=== PATIENT | female | born 1965 | race Caucasian/White ===

== ENCOUNTER 2018-01-05 17:02 | Emergency (ER) | payer SELFPAY ==
--- NOTE | 2018-01-05 19:25 | C.PDOC ---
History Of Present Illness 52 year old female presents to the ED c/o right flank pain that started earlier today. Patient now c/o LLQ abdominal pain associated with nausea, 2 episodes vomiting and diarrhea. Patient states her pain is 4/10. Patient denies fever, chills, back pain, dysuria, hematuria, weakness, numbness. Time Seen by Provider: 01/05/18 19:24 Chief Complaint (Nursing): Abdominal Pain History Per: Patient History/Exam Limitations: no limitations Onset/Duration Of Symptoms: Hrs Current Symptoms Are (Timing): Still Present Pain Scale Rating Of: 4 Location Of Pain/Discomfort: LLQ Radiation Of Pain To:: Flank Quality Of Discomfort: "Pain" Associated Symptoms: Nausea, Vomiting, Diarrhea Recent travel outside of the [place]: No Additional History Per: Patient Abnormal Vaginal Bleeding: No Past Medical History Reviewed: Historical Data, Nursing Documentation, Vital Signs Vital Signs: Last Vital Signs Temp 98.5 F 01/05/18 17:47 Pulse 119 H 01/05/18 17:47 Resp 18 01/05/18 17:47 BP 100/70 01/05/18 17:47 Pulse Ox 99 01/05/18 17:47 - Medical History PMH: No Chronic Diseases Surgical History: No Surg Hx Family History: States: Unknown Family Hx - Social History Hx Alcohol Use: No Hx Substance Use: No - Immunization History Hx Tetanus Toxoid Vaccination: No Hx Influenza Vaccination: No Hx Pneumococcal Vaccination: No Review Of Systems Constitutional: Negative for: Fever, Chills Respiratory: Negative for: Cough, Shortness of Breath Gastrointestinal: Positive for: Vomiting, Abdominal Pain, Diarrhea Genitourinary: Negative for: Dysuria, Hematuria Musculoskeletal: Positive for: Back Pain Skin: Negative for: Rash Neurological: Negative for: Weakness, Numbness Physical Exam - Physical Exam Appears: Non-toxic, No Acute Distress Skin: Warm, Dry Head: Normacephalic Eye(s): bilateral: Normal Inspection Neck: Supple Chest: Symmetrical Cardiovascular: Rhythm Regular Respiratory: No Rales, No Rhonchi, No Wheezing Gastrointestinal/Abdominal: Soft, Tenderness (LLQ), No Guarding, No Rebound Back: Normal Inspection Extremity: Bilateral: Atraumatic, Normal Color And Temperature, Normal ROM Neurological/Psych: Oriented x3, Normal Speech, Normal Cognition Gait: Steady ED Course And Treatment - Laboratory Results Result Diagrams: 01/05/18 21:04 01/05/18 21:04 O2 Sat by Pulse Oximetry: 99 (ON RA) Pulse Ox Interpretation: Normal Reevaluation Time: 23:03 Reassessment Condition: Improved Disposition Counseled Patient/Family Regarding: Studies Performed, Diagnosis, Need For Followup, Rx Given - Disposition Referrals: [facility] [Outside] Disposition: HOME/ ROUTINE Disposition Time: 19:25 Condition: FAIR Additional Instructions: Please return if symptoms recur Prescriptions: Metronidazole [Flagyl] 500 mg PO TID #21 tablet Ondansetron ODT [Zofran ODT] 1 odt PO BID PRN #6 odt PRN Reason: Nausea/Vomiting Instructions: Acute Abdomen (Belly Pain), Adult (DC), Nausea and Vomiting, Adult Forms: [employer] (Lithuanian) Print Language: CROATIAN - Clinical Impression Clinical Impression: Abdominal pain, Nausea, Vomiting, Enteritis - Scribe Statement The provider has reviewed the documentation as recorded by the Scribe Calvin Preston All medical record entries made by the Scribe were at my direction and personally dictated by me. I have reviewed the chart and agree that the record accurately reflects my personal performance of the history, physical exam, medical decision making, and the department course for this patient. I have also personally directed, reviewed, and agree with the discharge instructions and disposition.
[2018-01-05] MEDS ORDERED: Sodium Chloride 0.9% 1,000 ML IV ONE (19:53)
[2018-01-05] MEDS ORDERED: Sodium Chloride 0.9% 1,000 ML ONE (20:55)
[2018-01-05 21:09] LABS: BASO # 0.1 K/uL (0.0-0.2); BASO % 0.4 % (0.0-2.0); HEMOGLOBIN 14.8 g/dL (11.0-16.0); LYMPH # 1.5 K/uL (1.0-4.3); MEAN CELL VOLUME 93.4 fL (81.0-99.0); MEAN CORPUSCULAR HEMOGLOBIN 32.1 pg (27.0-31.0); MEAN CORPUSCULAR HGB CONC 34.4 g/dL (33.0-37.0); MEAN PLATELET VOLUME 8.9 fL (7.2-11.7); MONO # 0.4 K/uL (0.0-0.8); MONO % 3.6 % (0.0-10.0); NEUT # 9.6 K/uL (1.8-7.0); RBC 4.6 Mil/uL (3.80-5.20); WHITE BLOOD COUNT 11.6 K/uL (4.8-10.8)
[2018-01-05 21:23] LABS: INR 1.1; PROTHROMBIN TIME 11.5 SECONDS (9.7-12.2)
[2018-01-05 21:27] LABS: ALB/GLOB RATIO 1.2 (1.0-2.1); ALBUMIN 4.3 g/dL (3.5-5.0); ALT/SGPT 38 U/L (9-52); AST/SGOT 31 U/L (14-36); BLOOD UREA NITROGEN 11 mg/dL (7-17); CALCIUM 9.6 mg/dl (8.6-10.4); GFR NON-AFRICAN AMERICAN > 60; LIPASE 158 U/L (23-300)
[2018-01-05 21:38] LABS: SQUAMOUS EPITHIAL 1 /hpf (0-5); URINE BILIRUBIN NEGATIVE (NEGATIVE); URINE CLARITY Clear (Clear); URINE COLOR Yellow (YELLOW); URINE GLUCOSE (UA) 3+ mg/dL (Normal); URINE LEUKOCYTE ESTERASE NEG Leu/uL (Negative); URINE PROTEIN NEGATIVE (NEGATIVE); URINE UROBILINOGEN NORMAL mg/dL (0.2-1.0)
[2018-01-05 21:46] LABS: URINE BLOOD TRACE (NEGATIVE)
[2018-01-05] MEDS ORDERED: Iohexol 300 100 ML IJ ONE (21:54)
[2018-01-05] MEDS ORDERED: (Novolin R) Insulin Human Regular 100 units/ml vial IVP STA (22:30)
[2018-01-05] MEDS ORDERED: (Novolin R) Insulin Human Regular 100 units/ml vial ONE (22:46)
[2018-01-06 00:10] VITALS: BP 115/63; PULSE 100; RESP 20; TEMP 98.7; O2SAT 100
--- NOTE | 2018-01-06 08:58 | CT ---
Date of service: 01/05/2018 PROCEDURE: CT Abdomen and Pelvis with intravenous contrast HISTORY: Left lower quadrant abdominal pain COMPARISON: None. TECHNIQUE: CT scan of the abdomen and pelvis was performed with administration of intravenous contrast. Coronal and sagittal reformatted images were obtained. . Radiation dose: Total exam DLP = 244 mGy-cm. This CT exam was performed using one or more of the following dose reduction techniques: Automated exposure control, adjustment of the mA and/or kV according to patient size, and/or use of iterative reconstruction technique. FINDINGS: LOWER THORAX: The visualized lungs are clear. LIVER: Mild fatty infiltration of the liver. GALLBLADDER AND BILE DUCTS: No calcified gallstones. No biliary dilatation PANCREAS: Normal in size. No ductal dilatation. SPLEEN: Normal in size. ADRENALS: Normal in size. No discrete nodule. KIDNEYS AND URETERS: Normal in size without nephrolithiasis. No hydronephrosis. VASCULATURE: No aortic aneurysm. BOWEL: Prominent focally dilated and thickened as well as enhancing distal bowel loops at the level of the mid to distal ileum extending to the terminal ileum. This may represent the sequelae of an acute infectious and or inflammatory process such as underlying Crohn's disease. Clinical correlation. Small hiatal hernia. Under distended sigmoid colon. APPENDIX: Normal appendix. PERITONEUM: No free fluid. No free air. LYMPH NODES: No enlarged lymph nodes. BLADDER: Well distended and grossly normal in appearance. REPRODUCTIVE: 2.4 centimeter right adnexal cyst. BONES: Degenerative changes in the spine. Mild compression deformity of the L1 vertebral body. OTHER FINDINGS: None. IMPRESSION: 1. Prominent focally dilated and thickened as well as enhancing distal bowel loops at the level of the mid to distal ileum extending to the terminal ileum. This may represent the sequelae of an acute infectious and or inflammatory process such as underlying Crohn's disease. Clinical correlation. 2. 2.4 centimeter right adnexal cyst. 3. Mild fatty infiltration of the liver. 4. Small hiatal hernia. 5. Mild compression deformity of the L1 vertebral body. These findings were preliminarily reported at 10:46 p.m. on 01/05/[address] Arik Sharpe from [facility].
== END 2018-01-05 23:45 | disposition home or self-care (01) ==
LOC: C.ER 17:02
DX: K52.9 Noninfective gastroenteritis and colitis, unspecified (principal); R10.32 Left lower quadrant pain; R11.2 Nausea with vomiting, unspecified
CPT/HCPCS: 74177; 80053; 81001; 82948; 83690; 85025; 85610; 85730; 96374; 96375; 99284; C9113; J2405; J7030; Q9967